=== PATIENT | female | born 2005 | race Caucasian/White ===

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

== ENCOUNTER 2023-10-01 14:20 | Outpatient (CLI) | payer MEDICAID, SELFPAY ==
[2023-10-01 15:18] VITALS: BP 140/64; PULSE 91
[2023-10-01 15:51] VITALS: BMI 43.5
[2023-10-01 15:54] VITALS: BP 126/66; PULSE 86
[2023-10-01 16:04] LABS: Hemoglobin 11.4 g/dL (12.0-15.0); Mean Corp Hgb Conc 33.5 g/dL (32-36); Mean Corpuscular Hgb 27.7 pg (27.0-32.0); Mean Corpuscular Volume 82.7 fL (81-99); Mean Platelet Vol. 10.3 fl (6.2-12.0); Platelet Count 369 K/mm3 (150-450); RBC Distribution Width CV 13.2 % (11.6-14.6); RBC Distribution Width SD 40.1 fl (35.1-43.9); Red Blood Count 4.11 M/mm3 (4.2-5.4); White Blood Count 13.7 K/mm3 (4.4-11.0)
[2023-10-01 16:10] VITALS: BP 131/73; PULSE 89
[2023-10-01 16:17] LABS: Protein, Urine (Random) 20.2 mg/dL (<11.9); Protein:Creat Ratio 141 mg/g CRE (0-200)
[2023-10-01 16:25] VITALS: BP 128/60; PULSE 89
[2023-10-01 16:40] VITALS: BP 120/57; PULSE 93
[2023-10-01 16:47] LABS: AST(SGOT) 8 U/L (15-37); Alanine Aminotransfer ALT/SGPT 12 U/L (13-56); Creatinine, Serum 0.55 mg/dL (0.55-1.02); EST Glomerular Filtration Rate 151 mL/min (>60); Est Glom Filt Rate - Afr Amer 183 mL/min (>60); Uric Acid 4.9 mg/dL (2.6-6.0)
--- OUTSIDE RECORDS SUMMARY | 2023-10-01 17:33 | XMS RPT_ITS | CCD ---
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 (please check all that apply)? Social History: Do you have any history of depression, anxiety, PTSD, or other mood problems? No Do you have a history of abuse or trauma that may impact your experience? No Are you currently employed? Yes Depression/Anxiety Screening: denies symptoms of depression. OB Depression and Anxiety Screening- This Encounter (since 09/06/2023) Over the past 2 weeks have you felt down, depressed, or hopeless? Negative Over the past two weeks, have you felt little interest or pleasure in doing things?? Positive - Further Testing Indicated I have been able to laugh and see the funny side of things. As much as I always could I have looked forward with enjoyment to things. As much as I ever did I have blamed myself unnecessarily when things went wrong. No, never I have been anxious or worried for no good reason. No, not at all I have felt scared or panicky for no good reason. No, not at all Things have been getting on top of me. No, I have been coping as well as ever I have been so unhappy that I have had difficulty sleeping. Not very often I have felt sad or miserable. No, not at all I have been so unhappy that I have been crying. No, never The thought of harming myself has occurred to me. Never [place] Depression Scale Total 1 Feeling nervous, anxious or on edge 0-Not at all Not being able to stop or control worrying 0-Not al all Anxiety Pre-Screening Total (If >/= 3 additional questions will be reviewed) 0 ACOG Recommended Screening: Screening for early gestational diabetes testing: Criteria for early testing requires elevated BMI plus one other risk factor: There is no height on file. (risk factor if > than 25 or 23 in Americans) Additional risk factors: Women with polycystic ovarian syndrome She does not meet ACOG criteria for early gestational DM screening. Screening for low dose aspirin use for the prevention of pre-eclampsia: Low dose aspirin should be considered if the patient has one high or two moderate risk factors: High risk factors: None Moderate risk ractors: Nulliparity and Obesity (body mass index greater than 30) She does meet criteria for low dose ASA Marital Status:Single Partner: Name: Demarco Wilson Age: 18 Occupation: [employer] Gender: Male History of STDs: None PAST MEDICAL HISTORY Diagnosis Date Depression PCOS (polycystic ovarian syndrome) PAST SURGICAL HISTORY Procedure Laterality Date PAST SURGICAL HISTORY OF extraction of wisdom teeth TONSILLECTOMY AND ADENOIDECTOMY Current Outpatient Medications Medication Sig Dispense Refill vit/iron fum/folic ac ( 1 PLUS 1 ORAL) Take by mouth. No current facility-admin (more content not included)... [facility] 09-01-2023 Note HNO ID: [id number] Author: GREGORIA GARRISON RN Service: ? Author Type: Registered Nurse Type: Progress Notes Filed: 09/01/2023 11:08 Note Text: Received outside medical records from [facility]. Placed in mailbox. 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 Patient reports she still has not had a period. 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 trimester Supervision of other high risk pregnancies, third trimester Procedures NON-STRESS TEST NON-STRESS TEST Josiah Tobar MD [address] [place] [address] [place] [id number] [place] [id number] Referral ID Status Reason Start Date Expiration Date Visits Requested Visits Authorized [id number] Authorized Auto-Generat ed Referral 09/14/2023 09/13/2024 6 1 * Diagnostic Procedure Only (Routine) - Authorized Specialty Diagnoses / Procedures Referred By Faisal lopez Referred To Contact [facility] Diagnoses 34 weeks gestation of Maternal obesity 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 trimester Supervision of other high risk pregnancies, third trimester Procedures OBSTETRIC ULTRASOUND WHI US PREG UTERUS AFTER 1ST TRIMEST GESTATION Josiah Tobar MD [address] [place] [address] [place] [id number] [place] [address] Referral ID Status Reason Start Date Expiration Date Visits Requested Visits Authorized [id number] Authorized Auto-Generat ed Referral 09/14/2023 09/13/2024 1 1 [facility] for visit Narrative* Diagnostic Procedure Only (Routine) - Closed Specialty Diagnoses / Procedures Referred By Faisal lopez Referred To Contact [facility] Diagnoses 34 weeks gestation of Maternal obesity 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 [address] [facility] [address] [place] [address] Referral ID Status Reason Start Date Expiration Date V isits Requested Visits Authorized [id number] Closed Auto-Generate d Referral 09/14/2023 09/13/2024 1 1 [facility] Family History No Family History Records FoundUnknown Family Member Name Dates Details Family history of diabetes m ellitus: Grandmother(V18.0, Z83.3) Status:Active Family history of hypertensi on: Sister, Grandmother(V17.49, Z82.49) Status:Active Family history of thyroid di sease: Mother, Sister(V18.19, Z83.49) Status:Active Unknown Family Member Name Dates Details Family history of diabetes m ellitus: Grandmother(V18.0, Z83.3) Status:Active Family history of hypertensi on: Sister, Grandmother(V17.49, Z82.49) Status:Active Family history of thyroid di sease: Mother, Sister(V18.19, Z83.49) Status:Active Unknown Family Member Name Dates Details Family history of diabetes m ellitus: Grandmother(V18.0, Z83.3) Status:Active Family history of hypertensi on: Sister, Grandmother(V17.49, Z82.49) Status:Active Family history of thyroid di sease: Mother, Sister(V18.19, Z83.49) Status:Active Unknown Family Member Name Dates Details Family history of diabetes m ellitus: Grandmother(V18.0, Z83.3) Status:Active Family history of hypertensi on: Sister, Grandmother(V17.49, Z82.49) Status:Active Family history of thyroid di sease: Mother, Sister(V18.19, Z83.49) Status:Active Unknown Family Member Name Dates Details Family history of diabetes m ellitus: Grandmother(V18.0, Z83.3) Status:Active Family history of hypertensi on: Sister, Grandmother(V17.49, Z82.49) Status:Active Family history of thyroid di sease: Mother, Sister(V18.19, Z83.49) Status:Active Summary Purpose Advance Directives No Advanced Directives Records FoundNo Advanced Directives Records FoundNo Advanced Directives Records FoundNo Advanced Directives Records FoundNo Advanced Directives Records FoundNo Advanced Directives Records FoundNo Advanced Directives Records FoundNo Advanced Directives Records Found Reason for Referral Specialty Diagnoses / Procedures Referred By Faisal t Referred To Contact Radiology Diagnoses with 16 completed weeks gestation Procedures US OB 14+ weeks anatomy scan Vikki Newsome MD [address] [facility] Medical Office, [place] [id number] Referral ID Status Reason Start Date Expiration Date Visits Requested Visits Authorized [id number] Authorized Perform Procedure 05/11/2023 11/07/2023 1 1 Health Concerns Problem Noted Date Diagnosed Date [facility] - [facility] 09/07/2023 [facility] - [place] 09/07/2023 Problem Noted Date Diagnosed Date [facility] - [facility] 09/07/2023 Education - [place] 09/07/2023 Problem Noted Date Diagnosed Date [facility] - [facility] 09/07/2023 Education - [place] 09/07/2023 Problem Noted Date Diagnosed Date [facility] - [facility] 09/07/2023 Education - [place] 09/07/2023 Additional Source Comments INFORMATION SOURCE (unrecogn ized section and content) DATE CREATED AUTHOR AUTHOR'S ORGANIZ ATION 08/22/2022 [facility] DATE CREATED AUTHOR AUTHOR'S ORGANIZ ATION 03/07/2023 [facility] DATE CREATED AUTHOR AUTHOR'S ORGANIZ ATION 06/05/2023 [facility] DATE CREATED AUTHOR AUTHOR'S ORGANIZ ATION 06/30/[address] [facility] DATE CREATED AUTHOR AUTHOR'S ORGANIZ ATION 09/03/2023 [facility] DATE CREATED AUTHOR AUTHOR'S ORGANIZ ATION 09/05/2023 [facility] DATE CREATED AUTHOR AUTHOR'S ORGANIZ ATION 09/29/2023 [facility] <item><item> Privacy Markings (unrecogniz ed section and content) Section Author: Shraddha Madison PROHIBITION ON REDISCLOSURE OF CONFIDENTIAL INFORMATION This notice accompanies a disclosure of information concerning a client made to you with the consent of such client. Section Author: Shraddha Madison PROHIBITION ON REDISCLOSURE OF CONFIDENTIAL INFORMATION This notice accompanies a disclosure of information concerning a client made to you with the consent of such client. Reason for Visit (unrecogniz ed section and content) Referral ID Status Reason Start Date Expiration Date Visits Requested Visits Authorized [id number] Authorized Perform Procedure 05/11/2023 11/07/2023 1 1 Reason Comments PRAF Reason Onset Date Comments Care 09/14/2023 Reason Onset Date Comments Care 09/28/2023 Care Teams (unrecognized sec tion and content) Source Comments (unrecognize d section and content) In the event this informatio n is protected by the Federal Confidentiality of Alcohol and Drug Abuse Patient Records regulations: The Federal rules restrict any use of the information to criminally investigate or prosecute any alcohol or drug abuse patient.[facility] the event this information is protected by the Federal Confidentiality of Alcohol and Drug Abuse Patient Records regulations: The Federal rules restrict any use of the information to criminally investigate or prosecute any alcohol or drug abuse patient.[facility] the event this information is protected by the Federal Confidentiality of Alcohol and Drug Abuse Patient Records regulations: The Federal rules restrict any use of the information to criminally investigate or prosecute any alcohol or drug abuse patient.[facility] the event this information is protected by the Federal Confidentiality of Alcohol and Drug Abuse Patient Records regulations: The Federal rules restrict any use of the information to criminally investigate or prosecute any alcohol or drug abuse patient.[facility] FOR RECORDS PERTAINING TO PATIENTS WHO ARE OR HAVE BEEN ENROLLED IN A CHEMICAL DEPENDENCY/SUBSTANCEABUSE PROGRAM, SOME INFORMATION MAY BE OMITTED. This clinical summary was aggregated from multiple sources. Caution should be exercised in using it in the provision of clinical care. This summary normalizes information from multiple sources, and as a consequence, information in this document may materially change the coding, format and clinical context of patient data. In addition, data may be omitted in some cases. CLINICAL DECISIONS SHOULD BE BASED ON THE PRIMARY CLINICAL RECORDS. [facility] [employer] [facility]. provides no warranty or guarantee of the accuracy or completeness of information in this document.
--- NOTE | 2023-10-03 20:35 | OB.TRI.NOTE ---
HPI - General General Date of Admission: 10/01/23 Date of Service: 10/01/23 Chief Complaint: elevated BP HPI Narrative ELIZABETH BRYANT, is a 17 F who presents for rule out pre eclampsia. No severe ROUSSEAU's, vision changes, RUQ pain, epigastric pain, N/V. PFSH PFSH Home Medications NK 05/19/18 [History Last Taken Unknown] Allergy/AdvReac Type Severity Reaction Status Date / Time No Known Allergies Allergy Verified 06/10/21 09:59 Social History (System 06/10/21 @ 09:59 by Amie Tobar) Smoking Status: Never smoker NST FHR Rate Baby A Baseline: 125 Variability:: Moderate Accelerations:: 15 x 15 Decelerations:: None NST Reactive:: Yes FHR Category:: Category I Uterine Activity:: no regular ctx's Assessment & Plan (1) Elevated blood pressure reading: PLAN: Patient had 1 mild range BP. No symptoms of pre e. Pre e labs WNL. Serial BP's normal after initial mild range. Follow up in office early in week for BP check. (2) 37 weeks gestation of :
== END 2023-10-01 16:53 | disposition home or self-care (01) ==
LOC: WPOUT 14:22 → WP 14:44
PROVIDERS: PCP Family Medicine; Visit Provider Obstetrics & Gynecology
DX: O99.891 Other specified diseases and conditions complicating pregnancy (principal); R03.0 Elevated blood-pressure reading, without diagnosis of hypertension; Z3A.37 37 weeks gestation of pregnancy
CPT/HCPCS: 59050; 82565; 82570; 84156; 84450; 84460; 84550; 85027; 99221; G0378

== ENCOUNTER 2023-10-17 19:00 | Inpatient (IN) | payer MEDICAID, SELFPAY ==
--- OUTSIDE RECORDS SUMMARY | 2023-10-17 19:05 | XMS RPT_ITS | CCD ---
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 Vikki Manning Referring Unav ailable Aida Irvin WARD Primary Care Provider [phone] JEROD, VIKKI P Referring Unavailable IRVIN PARRA Primary Care Unavailable NEWSOME, VIKKI P Attending Unavailable AIDA, IRVIN A Primary Care Unavailable NEWSOME, VIKKI P Attending Unavailable AIDA, IRVIN A Primary Care Unavailable NEWSOME, VIKKI P Attending Unavailable AIDAIRVIN A Primary Care Unavailable NEWSOME, VIKKI P Attending Unavailable AIDA, IRVIN A Primary Care Unavailable NEWSOME, VIKKI P Attending Unavailable AIDA, IRVIN A Primary Care Unavailable NEWSOME, VIKKI P Attending Unavailable AIDA, IRVIN A Primary Care Unavailable AIDA, IRVIN A Primary Care Unavailable AIDA, IRVIN A Primary Care Unavailable AIDA, IRVIN A Primary Care Unavailable Unavailable Primary Care Provider UnavailJOSIAH Roth Referring Unavailable EVELINA MARIANO Attending Unavailable MARIA LUISA SIERRA Attending Unavailable LIZETH MUNOZ Attending Unavail able JOSIAH TOBAR Referring Unavailable MALU CALERO Attending Unavailable JOSIAH TOBAR Referring Unavailable LIZETH MUNOZ Attending Unavail able JOSIAH TOBAR Referring Unavailable Medications Current Medications Medication Drug Class(es) [...] 60 tablet 11 05/11/2023 05/10/2024 Active mv-mn no.[id number] erb 293 120 mcg-25 mg- 66.7 mg tablet,chewable (1 source) mv-mn no.88-[id number]-[id number]-he rb 293 120 mcg-25 mg- 66.7 mg [...] mg oral tablet (1 source) Progestin Start: 2 take 1 tablet by mouth once daily [...] fum/folic ac ( 1 PLUS 1 ORAL) (9 sources) vit/iro n fum/folic ac ( 1 PLUS 1 ORAL) Take by mouth. 0 Active Problems Active Problems Problem Classification Problem Date Documented Date Episodic/Chronic Bacterial infection; unspecified site (1 source) Unspecified streptococcus as the cause of diseases classified elsewhere; Translations: [Unsp streptococcus as the cause of diseases classd [facility]] Onset: 08-19-2022 Episodic E Codes: Struck by; [...] [Chest pain, unspecified] Onset: 08-19-2022 Episodic Other circulatory disease (7 sources) Elevated blood-pressure reading without diagnosis of hypertension; Translations: [Elevated blood-pressure reading, without diagnosis of hypertension] Onset: 10-01-2023 10-01-2023 Episodic Other complications of (6 sources) Obesity complicating , third trimester; Translations: [Obesity complicating , childbirth, or the puerperium, antepartum condition or complication] Onset: 09-24-2023 09-14-2023 Chronic Other complications of (10 sources) RhD negative; Translations: [Other specified related conditions, unspecified trimester] Onset: 09-07-2023 09-07-2023 Episodic Other complications of (4 sources) High risk ; Translations: [Supervision of other high risk pregnancies, third trimester] 09-14-2023 Episodic Other complications of (1 source) Supervision of other high risk pregnancies, third trimester; Translations: [Supervision of other high risk pregnancies, third trimester] Onset: 09-24-2023 Episodic Other connective tissue disease (1 source) [...] Episodic Other nutritional; endocrine; and metabolic disorders (10 sources) Body mass index 40+ - severely obese; Translations: [Body mass index (BMI) 40.0-44.9, adult] Onset: 09-07-2023 09-07-2023 Chronic Other and delivery including normal (15 sources) Encounter for test, result positive; Translations: [...] 09-24-2023 Episodic Residual codes; unclassified (1 source) Gestation period, 37 weeks; Translations: [37 weeks gestation of ] 10-05-2023 Episodic Residual codes; unclassified (1 source) Gestation period, 38 weeks; Translations: [38 weeks gestation of ] 10-12-2023 Episodic Residual codes; unclassified (1 source) 34 weeks gestation of ; Translations: [34 weeks gestation of ] Onset: 09-24-2023 Episodic Unclassified (2 sources) BWC INJURY TO [...] Vital Sign Value Performing Clinician John hinojosa 10-12-2023 09:14-0500 Body weight 134.72 kg Lizeth Salazar MD Work Phone: [facility] 10-12-2023 09:14-0500 Diastolic blood pressure 74 mm[Hg] Lizeth Salazar MD Work Phone: [facility] 10-12-2023 09:14-0500 Systolic blood pressure 122 mm[Hg] Lizeth Salazar MD Work Phone: [facility] 10-05-2023 09:01-0500 Body weight 134.99 kg Malu Calero APRN.CNM Work Phone: [facility] 10-05-2023 09:01-0500 Diastolic blood pressure 83 mm[Hg] Malu Calero APRN.CNM Work Phone: [facility] 10-05-2023 09:01-0500 Systolic blood pressure 123 mm[Hg] Malu Calero APRN.CNM Work Phone: [facility] 09-28-2023 10:41-0500 Body weight 135.26 kg Lizeth Salazar MD Work Phone: [facility] 09-28-2023 10:41-0500 Diastolic blood pressure 84 mm[Hg] Lizeth Salazar MD Work Phone: [facility] 09-28-2023 10:41-0500 Systolic blood pressure 130 mm[Hg] Lizeth Salazar MD Work Phone: [facility] 09-24-2023 14:08-0500 Diastolic blood pressure 77 mm[Hg] [facility] 09-24-2023 14:08-0500 Heart rate 90 /min [facility] 09-24-2023 14:08-0500 Systolic blood pressure 113 mm[Hg] Ob [facility] 09-14-2023 14:27-0500 Body weight 133.81 kg Josiah Tobar MD Work Phone: [facility] 09-14-2023 14:27-0500 Diastolic blood pressure 70 mm[Hg] Josiah Tobar MD Work Phone: [facility] 09-14-2023 14:27-0500 Systolic blood pressure 126 mm[Hg] Josiah Tobar MD Work Phone: [facility] 04-13-2023 09:16-0400 Body height 175.26 cm Irvin Harmonutzman Work Phone: [address] Work Phone: 04-13-2023 09:16-0400 Body mass index (BMI) [Ratio] 41.11 kg/m2 Irvin Harmonutzman Work Phone: [place] [address] [employer] Work Phone: 04-13-2023 09:16-0400 Body surface area Derived from formula 2.38 m2 Irvin Renman Work Phone: [place] [address] [employer] Work Phone: 04-13-2023 09:16-0400 Body weight 126.27 kg Irvin Parra Work Phone: [place] [address] [employer] Work Phone: 04-13-2023 09:16-0400 Diastolic blood pressure 82 mm[Hg] Irvin Parra Work Phone: [place] [address] [employer] Work Phone: 04-13-2023 09:16-0400 Systolic blood pressure 112 mm[Hg] Irvin Parra Work Phone: [place] [address] [employer] Work Phone: 04-13-2023 09:16-0400 97 1 Irvin Renman Work Phone: [place] [address] [employer] Work Phone: Encounters Encounter Date Encounter Type Care Provider Facility Start: 10-13-2023 Telephone encounter Book Packer RN Maternal Medicine Procedures Date Procedure Procedure Detail Performing Clinician Start: 10-12-2023 URINE OB DIP B/O Lizeth Salazar MD Work Phone: Start: 10-05-2023 URINE OB DIP B/O Karli Calero APRN.CNM Work Phone: Start: 09-24-2023 Us preg uterus after 1st trimest 08/09 gestation Josiah Tobar MD Work Phone: Start: [...] RSV Vaccine (1 - 1-dose 60+ series) [facility] Start: 11-12-2053 Zoster Vaccines (1 of 2) Zoster Vaccines (1 of 2) [facility] Start: 09-14-2033 Urine microalbumin profile DTaP,Tdap,Td Vaccine (8 - Td or Tdap) [facility] Start: 03-11-2026 Urine microalbumin profile DTaP,Tdap,Td Vaccine (7 - Td or Tdap) [facility] Start: 04-13-2024 Screening for Chlamydia trachomatis Chlamydia and Gonorrhea Screening [facility] Start: 09-14-2023 End: 09-14-2024 OBSTETRIC ULTRASOUND WHI OBSTETRIC ULTRASOUND WHI Anc Imaging Routine 34 weeks gestation of Maternal obesity 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 trimester Supervision of other high risk pregnancies, third trimester Expected: 09/14/2023, Expires: 09/14/[address] [facility] Work Phone: Immunizations Immunization Date Immunization Notes Care Provider Fa cility 09-14-2023 tetanus toxoid, redu charles diphtheria toxoid, and acellular pertussis vaccine, adsorbed Josiah Marco MD Work Phone: [facility] Payers Date Payer Category Payer Medicaid [id number] 2023 Medicaid [employer] MED[employer]ID [employer]ID [id number] 2023-Present [address] [address] [place] [address] [id number] 2023 Private Health Insurance [employer] MEDICAID [facility] [id number] 2023-Present [address] [address] [place] [address] Medicaid [id number] 2003 Unknown [id number] 069 2003 Unknown [id number] 2.16.840.1.994815.3.579.2.1 069 2003 Unknown [id number] 2.16.840.1.737619.3.579.2.1 069 2003 Unknown [id number] 2.16.840.1.654052.3.579.2.3 56 2003 Unknown [id number] 2.16.840.1.313350.3.579.2.3 56 2003 Unknown [id number] 2.16.840.1.378196.3.579.2.1 243 2003 Unknown [id number] 2.16.840.1.924323.3.579.2.1 244 2003 Unknown [id number] 2.16.840.1.095251.3.579.2.1 244 2003 Unknown [id number] 2.16.840.1.521649.3.579.2.1 244 2003 Unknown [id number] 2.16.840.1.707543.3.579.2.1 244 2003 Unknown [id number] 2.16.840.1.733956.3.579.2.1 244 2003 Unknown [id number] 2.16.840.1.294890.3.579.2.1 244 2003 Unknown [id number] 2.16.840.1.566693.3.579.2.1 245 2003 Unknown [id number] 2.16.840.1.741236.3.579.2.1 245 2003 Unknown [id number] 2.16.840.1.934654.3.579.2.1 245 Medicaid [id number] Self-pay [id number] Unknown Unknown [id number] Social History Date Type Detail Facility Start: 05-11-2023 End: 09-14-2023 Sexually active Sexually active [facility] Tobacco smoking consumption unknown [facility] Start: 05-10-2023 End: 09-07-2023 Tobacco smoking status NHIS Never smoked tobacco [facility] Start: 05-10-2023 End: 09-07-2023 Tobacco use and exposure Smokeless tobacco non-user [facility] Work Phone: Start: 05-11-2023 End: 09-14-2023 Alcohol intake Lifetime non-drinker (finding) [facility] Work Phone: Start: 05-11-2023 End: 09-14-2023 Tobacco use panel [facility] Start: 01-29-2023 [facility] Work Phone: Start: 2003 [facility]: Start: 05-29-2023 End: 06-08-2023 Exposure to SARS-CoV-2 (event) Not sure [facility] History of tobacco use Passive smoker [facility] The thought of sergmary lou fischer myself has occurred to me Never [facility] Start: 09-07-2023 Education 13 [facility] National Score (1-100), lower number is lower risk 80 [facility] Goals Date Patient Goal Desired Activity /State Personal health goal Clinical Notes 09-01-2023 to 10-13-2023 Telephone Encounter - Gregoria Andrews RN - 10/13/2023 10:58 AM Lizeth Franklin MD - 10/12/2023 10:08 AM ESTPrenatal Quick Notes - Lizeth Munoz MD - 10/12/2023 10:04 AM EST Note Date & Type Note Facility 10-13-2023 Miscellaneous Notes Formattin g of this note might be different from the original. 2nd and final risk assessment form submitted 10/13/2023. Gregoria Andrews RN documented in this encounter [facility] 10-12-2023 Note HNO ID: [id number] Author: LIZETH MUNOZ MD Service: ? Author Type: Physician Type: Progress Notes Filed: 10/12/2023 10:09 Note Text: NST SUMMARY PROVIDER ASSESSMENT AND INTERPRETATION Elizabeth Bryant is a 17 year old female, , who is at 38w4d with an HUNTER of 10/22/2023, Alternate HUNTER Entry dating method. Indications for NST: Obesity Baseline: 125 Variability: Moderate Accelerations: Present 15 X 15 Decelerations: None Contractions: TOCO: None Interpretation: Category I and Reactive SIGNATURE: Lizeth Jeff MD [facility] 10-12-2023 History of Presen t illness Narrative NST SUMMARY PROVIDER ASSESSMENT AND INTERPRETATION Elizabeth Bryant is a 17 year old female, , who is at 38w4d with an HUNTER of 10/22/2023, Alternate HUNTER Entry dating method. Indications for NST: Obesity Baseline: 125 Variability: Moderate Accelerations: Present 15 X 15 Decelerations: None Contractions: TOCO: None Interpretation: Category I and Reactive SIGNATURE: Lizeth Jeff MD documented in this encounter [facility] 10-12-2023 Miscellaneous Notes Formattin g of this note might be different from the original. DM-Pt doing well. Denies vaginal Bleeding, Leaking fluid, or regular Contractions. Pt reports good movement Physical Exam: Gen: female in no apparent distress Abd: soft, Gravid. Non tender to palpation. See flow sheet A/P: @ 38.4 weeks 1) BMI > 40 IOL scheduled 39+ weeks 2) NST today 3) Kick counts and labor reviewed 4) growth us reviewed - 70%, AC 98% Lizeth Jeff MD documented in this encounter [facility] 10-12-2023 Instructions Gabriela Murillo Ma - 10/12/2023 9:12 AM EST SEQUENTIAL SCREENINGS The [facility] offers sequential screenings for women who are [...] It will require an appointment with our heat treatment technician. This is not an ultrasound performed [...] the above symptoms, contact our office at [phone] and ask to speak with a nurse. After hours, you can call [employer] registry at [phone] OR call [facility] at [phone] and ask to have the doctor production machine computer operator paged. If you consider this an emergency, dial 9-1-9 or go to your nearest emergency department. NEED HELP? Are you dealing with a violent or abusive relationship? Are you a victim of rape or sexual assult? Call [facility] ([place]) 24 hour Crisis Hotline: 465.121.3041 or 880-743-2058. MANUAL Your Guide to a Healthy manual is now on-line. Visit [email or web address] to download your free copy documented in this encounter [facility] 10-08-2023 Note Patient Outreach (MAYA TRVIEDI) ELIZABETH BRYANT ([id number]) 1 F Date Time Provider Department 10/08/23 JACQUELINE GREGORY (PSS) During your visit today, we recorded the following information about you: Jacqueline Tijerina 10/08/2023 10:57 AM Addendum POPULATION HEALTH NAVIGATION OUTREACH Action/FYI Called and spoke to patient and she said that she doesn't have a pediatrican and she said I can send her the link via [email or web address]. However she said I do not need to call her back. [employer] message sent per patient request. OB/PEDS Reason for Outreach Medicaid OB/Peds Patient Contacted: Spoke to patient/parent/or legal guardian And sent [email or web address] message per patient request Patient identified by name and : Yes Medicaid OB/Peds actions taken: Patient declined: Not interested in scheduling Per patient that I don't need to call her back. Navigation Signature: Jacqueline Tran October 08, 2023 9:46 AM Allergies As of Date: 10/08/2023 (No Known Allergies) Date Reviewed: 10/05/2023 Reviewed by: Jacqueline Dickens MA - Fully Assessed Reason for Visit: Population Health Navigation Outreach [3910] Cmt: OB/PEDS Prescriptions as of 10/08/2023 - vit/iron fum/folic ac ( 1 PLUS 1 ORAL) Take by mouth. Problem List As Of Date 10/08/2023 Noted Resolved Rh negative state in antepartum period [O26.899*09/07/2023 Adult BMI 40.0-44.9 kg/sq m (HCC) [Z68.41] 09/07/2023 Encounter for supervision of normal first pregn*09/07/2023 Elevated blood pressure reading without diagnos*10/01/2023 Encounter Status:Closed by JACQUELINE TIJERINA on 10/08/23 [facility] 10-08-2023 Note HNO ID: [id number] Author: ?, ?, ? Service: ? Author Type: ? Type: Progress Notes Filed: 10/08/2023 10:57 Note Text: POPULATION HEALTH NAVIGATION OUTREACH Action/DAVINA Called and spoke to patient and she said that she doesn't have a pediatrican and she said I can send her the link via [email or web address]. However she said I do not need to call her back. [employer] message sent per patient request. OB/PEDS Reason for Outreach Medicaid OB/Peds Patient Contacted: Spoke to patient/parent/or legal guardian And sent [email or web address] message per patient request Patient identified by name and : Yes Medicaid OB/Peds actions taken: Patient declined: Not interested in scheduling Per patient that I don't need to call her back. Navigation Signature: Jacqueline Tran October 08, 2023 9:46 AM [facility] 10-08-2023 History of Presen t illness Narrative POPULATION HEALTH NAVIGATION OUTREACH Action/FYMary Lou Called and spoke to patient and she said that she doesn't have a pediatrican and she said I can send her the link via [email or web address]. However she said I do not need to call her back. [employer] message sent per patient request. OB/PEDS Reason for Outreach Medicaid OB/Peds Patient Contacted: Spoke to patient/parent/or legal guardian And sent [email or web address] message per patient request Patient identified by name and : Yes Medicaid OB/Peds actions taken: Patient declined: Not interested in scheduling Per patient that I don't need to call her back. Navigation Signature: Jacqueline Tran October 08, 2023 9:46 AM documented in this encounter [facility] 10-05-2023 Miscellaneous Notes Formattin g of this note might be different from the original. S: Elizabeth Bryant is a 17 year old female who presents at 37w4d with HUNTER:10/22/2023, Alternate HUNTER Entry for a routine visit. Denies headache, visual changes, chest pain, shortness of breath, vaginal bleeding, leakage of fluid, or dysuria. Feeling well, no complaints. O: See flow sheet Gen: No apparent distress Abd: Gravid, nontender TWG 25 lb S=D ASSESSMENT: 1. 37 weeks gestation of - 2. Maternal obesity 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 trimester 3. Supervision of other high risk pregnancies, third trimester - 4. Adult BMI 40.0-44.9 kg/sq m (HCC) - 5. Encounter for supervision of normal first in third trimester 6. Rh negative state in antepartum period P: 1) PTL precautions reviewed and when to call 2) Has not taken CBE. One class still available prior to HUNTER, encouragement to attend given 3) Plan handout provided. Encouraged to bring next appointment. 4) RTO 1 week 5) Reviewed Prepregnancy BMI 40 and discussed IOL vs expectant management. Discussed increased risk of HTN, preeclampsia, stillbirth and discussed options. She would like to proceed with induction of labor between 39-40 weeks. Will schedule at next visit as unable to schedule today as over a week from induction. Izzy Small Ross[employer] INVENTORY SPECIALIST NOTE OF PERSONAL INVOLVEMENT IN CARE: I have interviewed the patient and updated the midwifery student's PFS history, and ROS as necessary. I have re-performed the HPI, Physical Examination, Assessment and Plan. Malu Calero APRN.CNM documented in this encounter [facility] 10-05-2023 Instructions Jacqueline Dickens MA - 10/05/2023 9:01 AM EST SEQUENTIAL SCREENINGS The [facility] offers sequential screenings for women who are [...] It will require an appointment with our heat treatment technician. This is not an ultrasound performed [...] the above symptoms, contact our office at [phone] and ask to speak with a nurse. After hours, you can call doctors registry at [phone] OR call [facility] at [phone] and ask to have the doctor production machine computer operator paged. If you consider this an emergency, dial 2-3-5 or go to your nearest emergency department. NEED HELP? Are you dealing with a violent or abusive relationship? Are you a victim of rape or sexual assult? Call [facility] ([facility] 24 hour Crisis Hotline: 551.558.9315 or 149-617-2470. MANUAL Your Guide to a Healthy manual is now on-line. Visit [email or web address] to download your free copy documented in this encounter [facility] 10-01-2023 Miscellaneous Notes Formattin g of this note might be different from the original. Patient had 1 mild range BP in triage 140/64, followed by normal BP's. No symptoms of pre e. Pre e labs were WNL. Has visit Wednesday. Patient is currently in L&D now. Joan Shane RN 37w0d Patient states that she went to local pharmacy and checked her BP because she has felt hot and shaky the last 2 days. BP was 166/88. Patient denies ROUSSEAU, vision changes, RUQ pain, dizziness, recent illness, or fever. Last seen 09/28. Inquired what patient ate/drank today. She's had spaghetti-o's and [facility]. She lives in [place] and is now headed to [place] to either be seen in the office or at the hospital. Do you want her seen here? Gregoria Garrison RN documented in this encounter [facility] 09-28-2023 Note HNO ID: [id number] Author: LIZETH MUNOZ MD Service: ? Author [...] I and Reactive SIGNATURE: Lizeth Jeff MD [facility] 09-28-2023 History of Presen t [...] Lizeth Jeff MD documented in this encounter [facility] 09-28-2023 Miscellaneous Notes Formattin g of this note might be different from the original. DM-Pt doing well. Denies vaginal Bleeding, Leaking fluid, or regular Contractions. Pt reports good movement. Denies ROUSSEAU, visual changes. Physical Exam: Gen: female in no apparent distress Abd: soft, Gravid. Non tender to palpation. See flow sheet A/P: @ 36.4 weeks- transfer from [place] 1) Growth us reviewed- 70% 2) continue ASA 3) kick counts and labor reviewed 4) vertex on bedside us 5) weekly NSTs Lizeth Jeff MD documented in this encounter [facility] 09-28-2023 Instructions Jacqueline Dickens MA - 09/28/2023 10:41 AM EST SEQUENTIAL SCREENINGS The [facility] offers sequential screenings for women who are [...] It will require an appointment with our heat treatment technician. This is not an ultrasound performed [...] the above symptoms, contact our office at [phone] and ask to speak with a nurse. After hours, you can call doctors registry at [phone] OR call [facility] at [phone] and ask to have the doctor production machine computer operator paged. If you consider this an emergency, dial 3-1-1 or go to your nearest emergency department. NEED HELP? Are you dealing with a violent or abusive relationship? Are you a victim of rape or sexual assult? Call [facility] ([place]) 24 hour Crisis Hotline: 961.335.9193 or 020-824-7949. MANUAL Your Guide to a Healthy manual is now on-line. Visit [email or web address] to download your free copy documented in this encounter [facility] 09-14-2023 Note HNO ID: [id number] Author: JOSIAH TOBAR MD Service: ? Author [...] Medical Decision Making Level: 4 - Moderate [facility] 09-14-2023 History of Presen t [...] 4 - Moderate documented in this encounter [facility] 09-14-2023 Miscellaneous Notes Formattin g of this [...] Josiah Tobar M.D. documented in this encounter [facility] 09-14-2023 Fouzia Gallagher Ma - 09/14/2023 2:25 PM EST SEQUENTIAL SCREENINGS The [facility] offers sequential screenings for women who are [...] It will require an appointment with our heat treatment technician. This is not an ultrasound performed [...] the above symptoms, contact our office at [phone] and ask to speak with a nurse. After hours, you can call doctors registry at [phone] OR call [facility] at [phone] and ask to have the doctor production machine computer operator paged. If you consider this an emergency, dial 0-8-3 or go to your nearest emergency department. NEED HELP? Are you dealing with a violent or abusive relationship? Are you a victim of rape or sexual assult? Call [facility] ([place]) 24 hour Crisis Hotline: 682.457.5601 or 781-094-0574. MANUAL Your Guide to a Healthy manual is now on-line. Visit [email or web address] to download your free copy documented in this encounter [facility] 09-09-2023 Miscellaneous Notes Formattin g of this note might be different from the original. 1st risk assessment form submitted 09/09/23 Kimi Hancock RN documented in this encounter [facility] 09-07-2023 Note HNO ID: [id number] Author: MARIA LUISA SIERRA APRN.PARTS MANAGER Service: ? Author Type: Nurse Practitioner [...] use: No Multivitamin with Folic acid: Yes Methodist or heritage: No Would refuse blood transfusion [...] harming myself has occurred to me. Never [place]k Depression Scale Total 1 Feeling nervous, anxious [...] Partner: Name: Demarco Wilson Age: 18 Occupation: [email or web address] Gender: Male History of STDs: None PAST MEDICAL HISTORY Diagnosis Date Depression PCOS (polycystic ovarian syndrome) PAST SURGICAL HISTORY Procedure Laterality Date PAST SURGICAL HISTORY OF extraction of wisdom teeth TONSILLECTOMY AND ADENOIDECTOMY Current Outpatient Medications Medication Sig Dispense Refill vit/iron fum/folic ac ( 1 PLUS 1 ORAL) Take by mouth. No current facility-admin (more content not included)... [facility] 09-01-2023 Note HNO ID: [id number] Author: GREGORIA GARRISON RN Service: ? Author Type: Registered Nurse Type: Progress Notes Filed: 09/01/2023 11:08 Note Text: Received outside medical records from [facility]. Placed in mailbox. Gregoria Garrison RN [facility] documented in this encounter [facility] Work Phone: Evaluation note* Diagnosis 34 weeks gestation of - Primary state, incidental Maternal obesity 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 trimester Supervision of other high risk pregnancies, third trimester Need for Tdap vaccination Need for prophylactic vaccination with combined yyrtugerlt-zvkohio-hildjphwz (DTP) vaccine [facility] Diagnosis Encounter for anatomic survey- Primary Maternal obesity 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 trimester 36 weeks gestation of state, incidental documented in this encounter [facility] note* Diagnosis Maternal obesity 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 trimester- Primary Supervision of other high risk pregnancies, third trimester 36 weeks gestation of state, incidental documented in this encounter [facility] note* Diagnosis Elevated blood pressure reading without diagnosis of hypertension documented in this encounter [facility] note* Diagnosis 37 weeks gestation of - Primary state, incidental Maternal obesity 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 trimester Supervision of other high risk pregnancies, third trimester Adult BMI 40.0-44.9 kg/sq m (HCC) Body Mass Index 40.0-44.9, adult Encounter for supervision of normal first in third trimester Supervision of normal first Rh negative state in antepartum period Rhesus isoimmunization affecting management of mother, antepartum condition Elevated blood pressure reading without diagnosis of hypertension documented in this encounter [facility] note* Diagnosis Maternal obesity 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 trimester- Primary Supervision of other high risk pregnancies, third trimester 38 weeks gestation of state, incidental [facility] Present illness NarrativePatient is an 16-year-old who comes in to discuss her results after work-up for oligomenorrhea. Patient reports she still has not had a period. Patient reports that she is sexually active but at the present time is not trying to conceive however does not want to restart [place] [id number] [address] Work Phone: Reason for referral (narrative)* Outpatient Procedure (Routine) - Authorized Specialty Diagnoses / Procedures Referred By Faisal t Referred To Contact [facility] Diagnoses 34 weeks gestation of Maternal obesity 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 trimester Supervision of other high risk pregnancies, third trimester Procedures NON-STRESS TEST NON-STRESS TEST Josiah Tobar MD [address] [place] [address] [id number] [place] [address] Referral ID Status Reason Start Date Expiration Date Visits Requested Visits Authorized [id number] Authorized Auto-Generat ed Referral 09/14/2023 09/13/2024 6 1 * Diagnostic Procedure Only (Routine) - Authorized Specialty Diagnoses / Procedures Referred By Contbrian t Referred To Contact [facility] Diagnoses 34 weeks gestation of Maternal obesity 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 trimester Supervision of other high risk pregnancies, third trimester Procedures OBSTETRIC ULTRASOUND WHI US PREG UTERUS AFTER 1ST TRIMEST 1 GESTATION Josiah Tobar MD [address] [place] [address] [facility] [address] [place] [address] Referral ID Status Reason Start Date Expiration Date Visits Requested Visits Authorized [id number] Authorized Auto-Generat ed Referral 09/14/2023 09/13/2024 1 1 [facility] for visit Narrative* Diagnostic Procedure Only (Routine) - Closed Specialty Diagnoses / Procedures Referred By Contbrian t Referred To Contact [facility] Diagnoses 34 weeks gestation of Maternal obesity 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 trimester Supervision of other high risk pregnancies, third trimester Procedures OBSTETRIC ULTRASOUND WHI US PREG UTERUS AFTER 1ST TRIMEST GESTATION Josiah Tobar MD [address] [place] [address] [facility] [address] [place] [address] Referral ID Status Reason Start Date Expiration Date V isits Requested Visits Authorized [id number] Closed Auto-Generate d Referral 09/14/2023 09/13/2024 1 1 [facility] Family History No Family History Records FoundUnknown [...] Referral Specialty Diagnoses / Procedures Referred By Contac t Referred To Contact Radiology Diagnoses with 16 completed weeks gestation Procedures US OB 14+ weeks anatomy scan Vikki Newsome MD [address] [facility] Medical Office, [address] [address] Referral ID Status Reason Start Date Expiration Date Visits Requested Visits Authorized [id number] Authorized Perform Procedure 05/11/2023 11/07/2023 1 1 Health Concerns Problem Noted Date Diagnosed Date [facility] 09/07/2023 [facility] - [place] 09/07/2023 Problem Noted Date Diagnosed Date [facility] 09/07/2023 [facility] - [place] 09/07/2023 Problem Noted Date Diagnosed Date [facility] - [facility] 09/07/2023 [facility] - [place] 09/07/2023 Problem Noted Date Diagnosed Date [facility] - [facility] 09/07/2023 Education - [place] 09/07/2023 Problem Noted Date Diagnosed Date [facility] - [facility] 09/07/2023 Education - [place] 09/07/2023 Problem Noted Date Diagnosed Date [facility] - [facility] 09/07/2023 Education - [place] 09/07/2023 Problem Noted Date Diagnosed Date [facility] - [facility] 09/07/2023 Education - [place] 09/07/2023 Problem Noted Date Diagnosed Date [facility] - [facility] 09/07/2023 Education - [place] 09/07/2023 Problem Noted Date Diagnosed Date [facility] 09/07/2023 [facility] - [place] 09/07/2023 Additional Source Comments INFORMATION SOURCE (unrecogn ized section and content) DATE CREATED AUTHOR AUTHOR'S ORGANIZ ATION 08/22/2022 [facility] DATE CREATED AUTHOR AUTHOR'S ORGANIZ ATION 03/07/2023 [facility] DATE CREATED AUTHOR AUTHOR'S ORGANIZ ATION 06/05/2023 [facility] DATE CREATED AUTHOR AUTHOR'S ORGANIZ ATION 06/30/2023 [facility] DATE CREATED AUTHOR AUTHOR'S ORGANIZ ATION 09/03/2023 [facility] DATE CREATED AUTHOR AUTHOR'S ORGANIZ ATION 09/05/2023 [facility] DATE CREATED AUTHOR AUTHOR'S ORGANIZ ATION 10/14/2023 [facility] <item><item> Privacy Markings (unrecogniz ed [...] Date Expiration Date Visits Requested Visits Authorized [id number] Authorized Perform Procedure 05/11/2023 11/07/2023 1 1 Reason Comments PRAF Reason Onset Date Comments Care 09/14/2023 Reason Onset Date Comments Care 09/28/2023 Reason Comments OB Elevated BP Reason Onset Date Comments Care 10/05/2023 Reason Onset Date Comments Population Health Navigation Outreach 10/08/2023 OB/PEDS Reason Onset Date Comments Care 10/12/2023 Reason Comments Book Packer - Other PRAF Care Teams (unrecognized sec tion and content) Source Comments (unrecognize d section and content) In the event this informatio n is protected by the Federal Confidentiality of Alcohol and Drug Abuse Patient Records regulations: The Federal rules restrict any use of the information to criminally investigate or prosecute any alcohol or drug abuse patient.[facility] the event this information is protected by the Federal Confidentiality of Alcohol and Drug Abuse Patient Records regulations: The Federal rules restrict any use of the information to criminally investigate or prosecute any alcohol or drug abuse patient.[facility] the event this information is protected by the Federal Confidentiality of Alcohol and Drug Abuse Patient Records regulations: The Federal rules restrict any use of the information to criminally investigate or prosecute any alcohol or drug abuse patient.[facility] the event this information is protected by the Federal Confidentiality of Alcohol and Drug Abuse Patient Records regulations: The Federal rules restrict any use of the information to criminally investigate or prosecute any alcohol or drug abuse patient.[facility] Hospital[facility] the event this information is protected by the Federal Confidentiality of Alcohol and Drug Abuse Patient Records regulations: The Federal rules restrict any use of the information to criminally investigate or prosecute any alcohol or drug abuse patient.[facility] Hospital[facility] the event this information is protected by the Federal Confidentiality of Alcohol and Drug Abuse Patient Records regulations: The Federal rules restrict any use of the information to criminally investigate or prosecute any alcohol or drug abuse patient.[facility] HospitalIn the event this information is protected by the Federal Confidentiality of Alcohol and Drug Abuse Patient Records regulations: The Federal rules restrict any use of the information to criminally investigate or prosecute any alcohol or drug abuse patient.[facility] Hospital[facility] the event this information is protected by the Federal Confidentiality of Alcohol and Drug Abuse Patient Records regulations: The Federal rules restrict any use of the information to criminally investigate or prosecute any alcohol or drug abuse patient.[facility] Hospital[facility] the event this information is protected by the Federal Confidentiality of Alcohol and Drug Abuse Patient Records regulations: The Federal rules restrict any use of the information to criminally investigate or prosecute any alcohol or drug abuse patient.[facility] FOR RECORDS PERTAINING TO PATIENTS WHO ARE [...] BE BASED ON THE PRIMARY CLINICAL RECORDS. [facility] [employer] [facility]. provides no warranty or guarantee of the accuracy or completeness of information in this document.
--- NOTE | 2023-10-17 19:17 | PCM.HP.OB ---
HPI - General General Date of Admission: 10/17/23 Date of Service: 10/17/23 HPI Narrative ELIZABETH BRYANT, is a 17 F who presents for induction. Maternal Data Information Final HUNTER: 10/22/23 Gestational age: 39&2 [facility] Medical History (Updated 10/17/23 @ 19:[address] Sadiq Iverson MD) Depression Home Medications NK 05/19/18 [History Last Taken Unknown] Allergy/AdvReac Type Severity Reaction Status Date / Time No Known Allergies Allergy Verified 06/10/21 09:59 Surgical History H/O wisdom tooth extraction History of tonsillectomy and adenoidectomy Social History Smoking Status: Never smoker NST FHR Rate Baby A Baseline: 135 Variability:: Moderate Accelerations:: 15 x 15 Decelerations:: None Uterine Activity:: quiet Physical Exam Const alert, oriented x3 and no apparent distress GI soft to palpation, non-tender and non-distended Inspection: gravid external exam normal Narrative: cvx - 1.5/50/-3 Labs Labs Labs: Hct 34.0 % (37-47) L Hgb 11.4 g/dL (12.0-15.0) L Assessment & Plan (1) Obesity affecting in second trimester: QUALIFIERS: Obesity type affecting : unspecified obesity Qualified Code(s): O99.212 - Obesity complicating , second trimester COMMENT: @ 39&2 (2) with 39 completed weeks gestation: PLAN: Plan Admit to L&D Induction for obesity - intracervical gautam placed and will start pitocin later Pain - epidural as desired EFW - less than 4500g, patient with adequate pelvis GBS negative Routine care
[2023-10-17 19:19] VITALS: BP 132/81; PULSE 90; RESP 18; TEMP 36.7
[2023-10-17] MEDS: Lactated Ringers 1,000 ML 50 ML IV (19:30)
[2023-10-17 19:43] VITALS: BMI 44.3
[2023-10-17 19:55] LABS: Absolute Lymphocyte Count 2.19 X10^3/uL (0.83-4.51); Absolute Neutrophil Count 9.1 X10^3/uL (2.0-7.7); Basophil# 0.01 X10^3/uL; Basophil% 0.1 % (0-1); Eosinophil# 0.05 X10^3/uL; Eosinophils% 0.4 % (0-5); Hematocrit 34.1 % (37-47); Hemoglobin 11.2 g/dL (12.0-15.0); Lymphocyte # 2.19 X10^3/ul (0.83-4.51); Lymphocyte % 17.9 % (19-41); Mean Corp Hgb Conc 32.8 g/dL (32-36); Mean Corpuscular Volume 82.2 fL (81-99); Mean Platelet Vol. 10.3 fl (6.2-12.0); Monocyte# 0.82 X10^3/uL; Monocyte% 6.7 % (0-10); NRBC Flagged by Analyzer 0 % (0-5); Neutrophil # 9.14 X10^3/uL (2.7-7.7); Neutrophil % 74.6 % (47-70); Platelet Count 413 K/mm3 (150-450); RBC Distribution Width CV 13.8 % (11.6-14.6); RBC Distribution Width SD 41.1 fl (35.1-43.9); Red Blood Count 4.15 M/mm3 (4.2-5.4); White Blood Count 12.3 K/mm3 (4.4-11.0)
[2023-10-17] MEDS: 0.9% Normal Saline Single 100 ML IV.SOLN. INTRA-UTER (20:09)
[2023-10-17 20:41] LABS: Syphilis Antibodies Non-reactive
[2023-10-17 21:03] LABS: Hepatitis C Antibody Non-Reactive (Nonreactive)
[2023-10-17 22:18] VITALS: BP 123/64; PULSE 85; RESP 16; TEMP 36.5
[2023-10-17] MEDS: CHLORHEXIDINE GLUC 2% CLOTH 1 EACH TOWELETTE TOPICAL (22:20)
[2023-10-17] MEDS: Acetaminophen 500 MG Tablet PO (23:28)
[2023-10-18] VITALS (69 sets, daily range): BP systolic 108–192; BP diastolic 52–96; PULSE 77–121; RESP 15–18; TEMP 36.4–38.1; O2SAT 82–98
[2023-10-18] MEDS: Oxytocin 15 Units/NS 250ml 15 UNITS/250 ML IV.SOLN 2 UNITS IV (00:04)
[2023-10-18] MEDS: fentaNYL 100 MCG/2 ML Ampul IV (05:20)
[2023-10-18] MEDS: LACTATED RINGERS 500 ML 999 ML IV ×2 (06:47→11:37)
[2023-10-18] MEDS: fentaNYL-bupivacaine (epidural) 100 ML BAG EPIDURAL ×2 (08:15→13:45)
[2023-10-18] MEDS: Ondansetron 4 MG/2 ML Vial IV (09:25)
[2023-10-18] MEDS: CHLORHEXIDINE GLUC 2% CLOTH 1 EACH TOWELETTE TOPICAL (09:25)
[2023-10-18] MEDS: proCHLORPERazine 10 MG/2 ML Vial IV (09:47)
[2023-10-18] MEDS: Lactated Ringers 1,000 ML 200 ML IV ×2 (10:41→16:25)
[2023-10-18] MEDS: Oxytocin 15 Units/NS 250ml 15 UNITS/250 ML IV.SOLN 83 UNITS IV (18:25)
--- NOTE | 2023-10-18 18:32 | EX.PCM.OBRPT ---
Assessment & Plan (1) (spontaneous vaginal delivery): (2) with 39 completed weeks gestation: (3) Obesity affecting in second trimester: QUALIFIERS: Obesity type affecting : unspecified obesity Qualified Code(s): O99.212 - Obesity complicating , second trimester COMMENT: @ 39&2 Maternal Data Information Final HUNTER: 10/22/23 Gestational age: 39+2 Vaginal Delivery Maternal Presentation Maternal Presentation: Medically Indicated Induction Type of Induction: Pitocin and Payan Bulb Medical Reason for Induction: - (maternal obesity) Operative Information Date of Procedure: 10/18/23 Pre-Operative Diagnosis: Term complicated by maternal obesity Post-Operative Diagnosis: same Surgery / Procedure Performed: Spontaneous Vaginal Delivery Type of Anesthesia: Epidural Drain: Payan to straight drain Estimated Blood Loss: 150 cc Time of Delivery: 18:04 Findings Description of Procedure: Patient pushed for less than 20 minutes over an intact perineum. Head delivered without difficulty followed by the anterior and posterior shoulder. Short umbilical cord. Infant could not be placed on the abdomen until the cord was cut. Delayed cord clamp by 45 sec. Cord blood collected. Presentation: Vertex and JONATHAN Amniotic Membrane Rupture Type: Artificial Amniotic Fluid Description: Clear Placental Delivery Description: Spontaneous Placenta Disposition: [facility] Cord Vessel Description: 3 Vessels Cord Entanglement: None Infant A Gender: Female (1 minute): 9 (5 minute): 10 Delayed Cord Clamping: Yes Post Vaginal Delivery Medications Given After Delivery: IV Pitocin Episiotomy Description: None Laceration: Midline and 1st degree Complication Complications: None
[2023-10-18] MEDS: Rho(D) Immune Globulin 300 MCG (1500 Unit) Syringe IV (22:09)
[2023-10-18] MEDS: 0.9% Saline Lock 10 ML Syringe IV (22:10)
[2023-10-18] MEDS: Acetaminophen 500 MG Tablet 1000 MG PO (22:10)
[2023-10-19 04:56] VITALS: BP 124/70; PULSE 85; RESP 16; TEMP 36.8; O2SAT 98
[2023-10-19] MEDS: Acetaminophen 500 MG Tablet 1000 MG PO (05:15)
--- NOTE | 2023-10-19 08:38 | PCM.PN.OB ---
Subjective Subjective Doing well per patient and nursing staff. Ambulating and taking PO without difficulty. Voiding and passing flatus. Pain controlled. , services for assistance. Denies headache, visual changes, chest pain, shortness of breath, leg pain or increased bleeding. Lochia normal. Objective Data Objective Data Vital Signs: Vital Signs Temp Pulse Resp BP Pulse Ox O2 Del Method 98.2 F 85 16 124/70 H 98 Room Air 10/19/23 04:56 10/19/23 04:56 10/19/23 04:56 10/19/23 04:56 10/19/23 04:56 10/19/23 04:56 Oxygen Delivery Method Room Air Weight: 300 lb 6.4 oz Body Mass Index (BMI) 44.3 Intake & Output: Intake and Output for Last 24 Hours 10/17/23 10/18/23 10/19/23 23:59 23:59 23:59 Intake Total 4058.03 / 4058.03 Output Total 2950 / 2950 200 / 200 Balance 1108.03 / 1108.03 -200 / -200 Lab / Micro Data 10/17/23 19:25 Labs: Laboratory Results - last 24 hr 10/18/23 20:20: Screen NEGATIVE, Baby's Blood Type O POSITIVE, Baby's SOLE NEGATIVE ROS Constitutional Constitutional: Reports systems reviewed and no addt'l complaints, except as documented; Denies headache(s) Eyes Eyes: Denies acute decrease in peripheral vision, blurry vision or change in vision ENT HEENT: Reports systems reviewed and no addt'l complaints, except as documented Cardiovascular Cardiovascular: Denies chest pain or dizziness Respiratory/Chest Respiratory/Chest: Denies cough, dyspnea, dyspnea on exertion, shortness of breath at rest or shortness of breath with exertion Gastrointestinal Gastrointestinal: Denies abdominal pain, diarrhea, nausea or vomiting Genitourinary Genitourinary: Denies abdominal discomfort Musculoskeletal Musculoskeletal: Denies limited range of motion Integumentary Integumentary: Reports systems reviewed and no addt'l complaints, except as documented Neurologic Neurologic: Reports systems reviewed and no addt'l complaints, except as documented Psychiatric Psychiatric: Reports systems reviewed and no addt'l complaints, except as documented Endocrine Endocrinology: Reports systems reviewed and no addt'l complaints, except as documented Hematologic/Lymphatic Hematologic/Lymphatic: Reports systems reviewed and no addt'l complaints, except as documented Allergic/Immunologic Allergic/Immunologic: Reports systems reviewed and no addt'l complaints, except as documented Physical Exam Const alert and oriented x3 General Appearance: cooperative Orientation / Consciousness: awake, oriented to person, oriented to place and oriented to time Exam Limitations: no limitations HEENT normocephalic Head and Scalp: normal to inspection, normocephalic and atraumatic Face and Sinus: normal facial exam Eyes General Eye: normal appearance of both eyes Neck full ROM Chest Chest: symmetrical chest wall rise Resp normal respiratory effort and normal air movement Auscultation: clear to auscultation bilaterally Cardio regular rate, regular rhythm, S1 normal heart sound, S2 normal heart sound, no murmurs, no rub, no gallops and no clicks GI normal to inspection, nondistended, normoactive bowel sounds and non-tender appearance of the vagina normal Bladder / Kidney Exam: no CVA tenderness Back/Spine normal ROM Extremity normal to inspection and full ROM Skin no rashes or lesions noted Neuro oriented x3 and moves all extremities Sensorium / Orientation: awake, alert and oriented to person Assessment & Plan (1) (spontaneous vaginal delivery): PLAN: Plan 1) Routine PP care 2) Vitals stable 3) Pain management 4) D/C home today 5) Follow up in 2 weeks and 6 weeks
[2023-10-19 09:12] VITALS: BP 116/69; PULSE 76; RESP 18; TEMP 36.4; O2SAT 100
[2023-10-19 12:00] VITALS: BP 118/58; PULSE 77; RESP 18; TEMP 36.5; O2SAT 100
[2023-10-19] MEDS: Ibuprofen 600 MG Tablet PO (12:00)
--- NOTE | 2023-10-19 15:03 | CASEMGMT ---
Social Work Assessment Labor and Delivery Unit Date of Referral: 10/19/23 Time of Referral:? 233 Referred By: Gregoria Rush Date of Intervention: ??10/19/23 Time of Intervention:? 1400 Reason for Referral: ?depression and resources? Sw completed chart review and acknowledges social work consult due to maternal mental health history, and potential need for community resources. Sw presented to bedside and introduced self to mother of baby (MOB- Malini) and father of baby (FOB- Demarco Wilson). Sw explained sw role during hospitalization and completed psychosocial assessment. ? History obtained from: medical records, MOB and FOB Household composition: MOB and FOB currently reside with FOB?s mother, and now baby Patient's parent/guardian status:? CHACHO states that she and ORLANDO have been together for 2 years, they met while attending school together. No concerns at this time regarding domestic violence or intimate partner violence. Medical History: CHACHO is 17 year old female who is 1, para 0- now 1 following labor and delivery of . CHACHO started her care with [place], and then transferred care to [facility] when [place] closed. CHACHO presented to hospital and delivered baby on 10/18/23 via vaginal delivery. Baby girl, named Tavon, was born weighing 8lb 1oz. CHACHO states that baby has been feeding well, there are no medical concerns at this time. Baby will be followed by [facility] for pediatrics. ? Educational Status:? Both parents graduated from high school, no college education. Financial Status: Both parents are gainfully employed outside of the home. ORLANDO works for [employer] in maintenance- he is able to take a week or more off now that baby has been born. 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 CHACHO states that she can take two months off of work. Supplies:?? Parents state that they have obtained all necessary baby supplies, including: car seat, safe sleep space, clothes, diapers and wipes. CHACHO has a breast pump for home. Childcare/Caregiver(s):? MOB will be the primary caregiver to baby along with FOB when he is not at work. MOB states that when both parents are working her sister will be able to help take care of baby, along with both sets of grandma?s. Transportation:?? Both parents have their drivers license and reliable means of transportation. No barriers at this time. Programs/Agencies Involved: ??CHACHO is receiving insurance through [employer]. Casey educated CHACHO that she has thirty days to get baby added to her insurance. CHACHO is also receptive to [facility], casey informed her that she needs to call and get scheduled with them. Casey also provided parents with information regarding [employer]. ? Children Services/Legal Issues:? No history of involvement, no issues or concerns warranting referral to be made at this time. ?? Behavioral Health Issues: ??Mental Health History: ORLANDO denies history of mental health or mental health diagnoses. CHACHO states that she has been diagnosed with depression, but also struggles with anxiety. CHACHO is not prescribed any psychotropic medications, and was in counseling services in the past, but is not connected to anyone at this time. ???Substance Use History: CHACHO denies substance use prior to and during . ???Family History:? Parents deny substance use history for their parents, and also deny significant mental health history such as bipolar or schizophrenia. ?Drug Screens: ?No drug screens observed in chart review. ? Family/Social Stressors: Parents deny any issues or concerns at this time. Parents have been observed to provide loving and appropriate hands on care of . ? Support Systems: Parents state that both sets of grandparents are supportive, along with other family members and friends. Depression/Shaken Baby/Safe Sleeping:? Casey educated parents at length regarding baby blues and depression and anxiety. Parents expressed understanding. Casey educated parents on shaken baby prevention and ABCs of safe sleep. Parents express understanding. ASSESSMENT: Parents both interactive and engaged during completion of psychosocial assessment. Parents asked appropriate questions and were observed to provide loving and appropriate hands-on care of baby. Parents have obtained all necessary supplies for baby and have natural supports in place. ? PLAN:? MOB and baby to be discharged when medically ready. ?No other services requested or indicated. Marquise Santana, TANK COOPER, MANAGER KNOWLEDGE
--- NOTE | 2023-10-19 15:51 | NURSING ---
[facility] [phone]
[2023-10-19 16:07] VITALS: BP 121/67; PULSE 85; RESP 16; TEMP 36.6; O2SAT 99
--- NOTE | 2023-10-19 16:18 | PCM.DC.SUM ---
Providers Date of Admission: 10/17/23 Primary Care Physician: Dr. Veronica Moy DO Reason For Visit: VAG DELIVERY Diagnosis Discharge Diagnosis (1) (spontaneous vaginal delivery): Status: Acute Code(s): O80 - Encounter for full-term uncomplicated delivery Plan 1) Routine PP care 2) Vitals stable 3) Pain management 4) D/C home today 5) Follow up in 2 weeks and 6 weeks Medications at Discharge Home Medications vit no.133-ferrous fumarate 28 mg-folic acid 800 mcg tablet () tab PO DAILY 10/17/23 Weight / BMI Weight Weight: 300 lb 6.4 oz Body Mass Index (BMI) 44.3 ABG / Lab / Microbiology Data 10/17/23 19:25 Laboratory: Laboratory Results - last 24 hr 10/18/23 20:20: Screen NEGATIVE, Baby's Blood Type O POSITIVE, Baby's SOLE NEGATIVE D/C Instructions Discharge Diet: No restrictions May resume sexual activity in: 6 weeks Weight Bearing Status: Full weight bearing Lifting Restricted to (Lbs): 20 Call your doctor if you observe: Fever of 101 or Higher, Inability to urinate, Inability to have a bowel movement, Using more than 1 pad per hour, Shortness of breath, Dizziness, Fainting spells, Chest pain, Increased palpitations (irregular heartbeat), Calf discomfort and Uncontrolled pain When: 2 weeks and 6 weeks Meaningful Use Info Meaningful Use Diagnoses (Choose all that apply): None applicable Discharge Plan Admission Admit Date/Time: 10/17/23 19:00 Attending Provider: Gregoria Rush Primary Care Provider: Veronica Moy Discharge Orders/Prescriptions Prescriptions: No Action 28-800 mg-mcg tablet PO DAILY Referrals / Follow Up: Veronica Moy DO [Primary Care Provider] -
== END 2023-10-19 19:10 | disposition home or self-care (01) | DRG 560 ==
PROVIDERS: Obstetrics & Gynecology; Admitting Provider Obstetrics & Gynecology; PCP Family Medicine; Visit Provider Obstetrics & Gynecology
DX: O99.214 Obesity complicating childbirth (principal); Z37.0 Single live birth; E66.8 Other obesity; Z3A.39 39 weeks gestation of pregnancy
CPT/HCPCS: 59025; 59050; 85025; 85461; 86780; 86803; 86850; 86900; 86901; 90384; 99221; J7120; A4216; G0378; J2405; J2790; J2791

== ENCOUNTER → 2025-05-28 | Outpatient (CLI) | payer MEDICAID, SELFPAY ==
[2025-06-01 14:10] LABS: Age Gdln ACOG Testing 21-29 (.)
== END | disposition home or self-care (01) ==
LOC: LABSPEC 14:48
PROVIDERS: PCP Family Medicine; Referring Provider Nurse Practitioner Family; Visit Provider Nurse Practitioner Family
DX: Z12.4 Encounter for screening for malignant neoplasm of cervix (principal)
CPT/HCPCS: 88175; G0145